=== PATIENT | female | born 1995 | race Caucasian/White ===

== ENCOUNTER → 2016-12-12 | Outpatient (REF) | payer OTHER ==
[~2016-12-12] MED LIST: COLA100C3 PO; DIBU1OIN TOP; IBUP-1114 PO; IBUP800T23 PO; LABE10TAB PO; OXYC1TAB23 PO; PRENTAB9 PO
== END ==
LOC: M LAB REF 16:16
PROVIDERS: ATTEND Physician Assistant
DX: R30.0 Dysuria (principal)

== ENCOUNTER → 2017-05-06 | Outpatient (REF) | payer OTHER ==
[~2017-05-06] MED LIST changes: -COLA100C3 PO; +COLA100C5 PO; +IBUP1TAB7 PO; -IBUP800T23 PO
== END ==
LOC: M LAB REF 17:13
PROVIDERS: ATTEND Obstetrics & Gynecology
DX: Z12.4 Encounter for screening for malignant neoplasm of cervix (principal)